=== PATIENT | male | born 1995 | race Caucasian/White ===

== ENCOUNTER 2016-07-18 23:30 | Emergency (ER) | payer OTHER ==
[~2016-07-18] VITALS: Ht 177.8 cm; Wt 77.3 kg
[~2016-07-18 23:30] MED LIST: BENZ200C44 PO; DICY20TA33 PO; ONDA4TAB9 PO
[2016-07-18 23:40] VITALS: BP 140/89; PULSE 81; RESP 14; O2SAT 97
--- NOTE | 2016-07-18 23:54 | ED.REPORT ---
HPI-URI / Cough / Cold Date of Service Jul 18, 2016 ED Provider: Dr. Gera Myers D.O. A 20 year old male with a medical history including bipolar disorder, ADD, and GERD presents to the ED with a cough onset one week ago, worsening tonight. The patient also reports nasal congestion and sore throat. He denies fever or other symptoms. The patient has not been on antibiotics recently and has no ill contacts. Nursing Notes Stated Complaint: CONGESTED/ COUGH Chief Complaint: Respiratory Complaints Nursing Notes Reviewed: Yes Allergies: Coded Allergies: Penicillins (Verified Allergy, Severe, Shortness of Breath, 04/16/16) Sulfa (Sulfonamide Antibiotics) (Verified Allergy, Severe, Nausea,Vomiting , 04/16/16) + migraines aspirin (Verified Allergy, Unknown, lightheaded, 04/16/16) Scheduled PRN Benzonatate (Benzonatate) 200 Mg Capsule 200 MG PO TID PRN PRN For Cough Dicyclomine (Bentyl) 20 Mg Tablet 20 MG PO TID PRN PRN For GI Cramps Ondansetron ODT (Zofran ODT) 4 Mg Tablet 4 MG PO Q4H PRN PRN For Nausea General Time Seen by MD: 23:54 Chief Complaint Cough, non-productive Hx Obtained From: Patient Arrived By: Walk-in Onset Occurred: 1 week ago Symptom Duration: Since onset Location: : Pharynx Quality: Painful Severity: Current: Mild Severity: Maximum: Mild Associated with: Denies: Fever Pertinent Negative: Relieved by nothing Context: Immunization Status General: Unknown Recent Healthcare: No recent doctor visit Past Medical History Past Medical History Bipolar disorder ADD GERD Past Surgical History None Family History Grandfather had heart disease Non-Contributory Reports: Diabetes mellitus Smoking History Former Smoker 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 Physical Exam Physical Exam Notes: Initial Vital Signs Vital Signs (First) Date Time Temp Pulse Resp B/P Pulse Ox O2 Delivery O2 Flow Rate FiO2 07/18/16 23:40 36.6 81 14 140/89 97 Room Air Initial VS: Reviewed Head / Eyes: Atraumatic, Normocephalic Neck: Non-tender, Full range of motion Cardiovascular: Regular rate & rhythm, Heart sounds normal, Intact distal pulses Skin: Warm, Dry, No cyanosis Neurologic: Alert, Oriented, Nonfocal Psychiatric: Mood/affect normal, Behavior normal, Normal thought content General/Constitutional: Awake, Alert, No acute distress ENT: Airway patent, Mucous membranes moist Respiratory / Chest: No respiratory distress Wheezing / Retractions: Positive: Wheezing moderate (Left) Rales / Rhonchi: Positive: Rhonchi diffuse (Bilateral) Interpretation & Diagnostics Rapid Strep Negative Influenza Negative Re-Eval/Medical Decision Med Decision/Clinical Course No pulmonary emboli risk factors Pulmonary emboli criteria met Lungs better after albuterol Will place on course of Zithromax, prednisone, and albuterol Recommend he stay home 48 hours Source of Hx: Old records Re-Evaluation/Progress : Time of Eval: 00:30 Patient Status: Condition improved Re-Evaluation/Progress Note: Discussed with patient lab results, diagnosis, and plan for discharge. Follow-up and return to the ER instructions given. Patient agrees with plan for care and all questions were addressed. Counseled Regarding: Diagnosis, Lab results, Need for follow-up, When/why to return to ED Discharge & Departure Impression: Primary Impression: Acute bronchitis Bronchitis organism: unspecified organism Qualified Code: J20.9 - Acute bronchitis, unspecified Additional Impression: Bronchospasm Disposition: Home Discharge Condition All VS Reviewed: Yes Condition: Improved Patient Instructions: Acute Bronchitis (GEN) Additional Instructions: Never ever smoked cigarettes again. Zithromax daily for 4 days. Albuterol 2 puffs every 3 hours as needed for cough. Prednisone daily for 3 days. Set up a follow-up with your primary care physician for the next 5-7 days. If you develop any chest pain, shortness of breath or cough up any blood then come right back to the emergency department. Your flu screen was negative. Referrals: Lilly Waldrop ([facility]) VRancho (PCP) Scribe Attestation Portions of this note were transcribed by Kaitlin Stephen. I, Dr. Myers, personally performed the history, physical exam, and medical decision-making; I reviewed and confirmed the accuracy of the information in the transcribed note. Signed by: Kelin Miranda, 07/19/2016, 01:07 copies to: Lilly Waldrop Todd P DO ([place]) Jul 18, 2016 23:54 KAITLIN STEPHEN Jul 19, 2016 00:06
[2016-07-19] MEDS ORDERED: Albuterol HFA 60 Puff 8 Gm Inhaler INHALATION PRN (00:05)
[2016-07-19] MEDS ORDERED: predniSONE 20 mg Tablet PO ONE (00:05)
== END 2016-07-19 00:44 | disposition home or self-care (01) ==
LOC: SED 23:30
DX: J20.9 Acute bronchitis, unspecified (principal); R09.81 Nasal congestion; J02.9 Acute pharyngitis, unspecified; K21.9 Gastro-esophageal reflux disease without esophagitis; F31.9 Bipolar disorder, unspecified; F90.9 Attention-deficit hyperactivity disorder, unspecified type; Z87.891 Personal history of nicotine dependence; Z88.0 Allergy status to penicillin; Z88.2 Allergy status to sulfonamides

== ENCOUNTER 2016-07-27 19:48 | Emergency (ER) | payer OTHER ==
[~2016-07-27] VITALS: Ht 177.8 cm; Wt 77.3 kg
[2016-07-27 20:01] VITALS: BP 138/93; PULSE 109; RESP 17; O2SAT 96
[2016-07-27 20:43] LABS: BASOPHILS % (AUTO) 0.5 % (0-3); EOSINOPHILS % (AUTO) 1.7 % (0-5); MONOCYTES % (AUTO) 8.2 % (4-12); Mean Corpuscular Volume 81.3 fL (81-100); NEUTROPHILS % (AUTO) 57.4 % (40-74); Platelet Count 210 bil/L (150-400)
== END 2016-07-27 20:48 | disposition left against medical advice (07) ==
LOC: SED 19:48
DX: R10.9 Unspecified abdominal pain (principal); Z53.21 Procedure and treatment not carried out due to patient leaving prior to being seen by health care provider

== ENCOUNTER 2016-09-18 00:38 | Emergency (ER) | payer OTHER ==
[~2016-09-18] VITALS: Ht 177.8 cm; Wt 81.0 kg
[2016-09-18 00:43] VITALS: BP 139/89; PULSE 98; RESP 18; O2SAT 98
--- NOTE | 2016-09-18 01:12 | ED.REPORT ---
HPI-URI / Cough / Cold Date of Service September 18, 2016 ED Provider: Dr. Gera Myers D.O. A 20 year old male with a history of GERD, ADD, and bipolar disorder presents to the ED with a cough onset six days ago. Associated symptoms include subjective fever, posttussive vomiting, and generalized myalgias. He denies other symptoms. The patient has had similar symptoms in the past. Nursing Notes Stated Complaint: COUGH,NAUSEA,CHILLS,FEVER Chief Complaint: Respiratory Complaints Nursing Notes Reviewed: Yes Allergies: Coded Allergies: Penicillins (Verified Allergy, Severe, Shortness of Breath, 09/18/16) Sulfa (Sulfonamide Antibiotics) (Verified Allergy, Severe, Nausea,Vomiting , 09/18/16) + migraines aspirin (Verified Allergy, Unknown, lightheaded, 09/18/16) Scheduled PRN Benzonatate (Benzonatate) 200 Mg Capsule 200 MG PO TID PRN PRN For Cough Dicyclomine (Bentyl) 20 Mg Tablet 20 MG PO TID PRN PRN For GI Cramps Ondansetron ODT (Zofran ODT) 4 Mg Tablet 4 MG PO Q4H PRN PRN For Nausea General Time Seen by MD: 01:12 Chief Complaint Cough, non-productive Hx Obtained From: Patient Arrived By: Walk-in Onset Occurred: 6 days ago Symptom Duration: Since onset Location: : Diffuse myalgia Quality: Painful Severity: Current: Moderate Severity: Maximum: Moderate Pertinent Negative: Relieved by nothing Context: Immunization Status Immunizations Up to Date: Tetanus within 5-10 years Recent Healthcare: No recent doctor visit Similar Sx Previous: Yes Past Medical History Past Medical History Bipolar disorder ADD GERD Past Surgical History None Family History Grandfather had heart disease Non-Contributory Reports: Diabetes mellitus Smoking History Former Smoker 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 Musculoskeletal: Reports: Myalgia (Generalized myalgias) Physical Exam Initial Vital Signs Vital Signs (First) Date Time Temp Pulse Resp B/P Pulse Ox O2 Delivery O2 Flow Rate FiO2 09/18/16 00:43 36.8 98 18 139/89 98 Room Air Initial VS: Reviewed Head / Eyes: Atraumatic, Normocephalic Neck: Supple, Full range of motion Cardiovascular: Regular rate & rhythm, Heart sounds normal Skin: Warm, Dry, No cyanosis Neurologic: Alert, Oriented, Nonfocal Psychiatric: Mood/affect normal, Behavior normal, Normal thought content General/Constitutional: Awake, Alert, No acute distress Respiratory / Chest: No respiratory distress Wheezing / Retractions: Positive: Wheezing mild (Left base) Rales / Rhonchi: Positive: Rhonchi coarse L Interpretation & Diagnostics X-Ray Chest Interpretation Chest Xray Interpretation: Retrocardiac infiltrate View: AP & lat Interpretation / Wet Read by: Wet read ED physician Re-Eval/Medical Decision Med Decision/Clinical Course Healthy 20-year-old male presents with chills, cough and productive green sputum. He has been sick for 5-6 days. He has had similar problems in the past. He does not have pulmonary emboli risk factors. Pulmonary emboli rule out criteria were met. He is considered low risks and therefore d-dimer was not indicated. Chest x-ray shows a retrocardiac infiltrate consistent with early pneumonia. I will place him on a macrolide. Recommend close outpatient follow-up. Return if any problems or any new or worsening symptoms. Source of Hx: Old records Re-Evaluation/Progress : Time of Eval: 02:00 Patient Status: Condition improved Re-Evaluation/Progress Note: Discussed with patient x-ray and lab results, diagnosis, and plan for discharge. Follow-up and return to the ER instructions given. Patient agrees with plan for care and all questions were addressed. Counseled Regarding: Diagnosis, Lab results, Need for follow-up, When/why to return to ED Discharge & Departure Impression: Primary Impression: Acute bronchitis Bronchitis organism: unspecified organism Qualified Code: J20.9 - Acute bronchitis, unspecified Disposition: Home Discharge Condition All VS Reviewed: Yes Condition: Improved Patient Instructions: Acute Bronchitis (GEN) Additional Instructions: Finished the Z-Skinny. Prednisone daily for 3 days. Albuterol 2 puffs every 4 hours. Set up a follow-up with your primary care physician for later this week. Return if any problems or any new or worsening symptoms. Return if you develop any chest pain or shortness of breath or cough up any blood. Off work until Saturday. Referrals: Lilly Waldrop ([facility]) Delma (PCP) Kelin Attestation Portions of this note were transcribed by Kaitlin Stephen. I, Dr. Myers, personally performed the history, physical exam, and medical decision-making; I reviewed and confirmed the accuracy of the information in the transcribed note. Signed by: Kelin Miranda, 09/18/2016, 02:30 copies to: Lilly Waldrop ([place]) Gera Brooks DO September 18, 2016 01:12 KAITLIN STEPHEN September 18, 2016 01:22
[2016-09-18] MEDS ORDERED: predniSONE 20 mg Tablet PO ONE (01:20)
[2016-09-18] MEDS ORDERED: _Proair 200 Puff/8.5 GM Inhaler INHALATION PRN (01:25)
[2016-09-18 02:20] VITALS: BP 135/85; PULSE 88; RESP 20; O2SAT 98
--- NOTE | 2016-09-19 09:40 | DRSVH ---
PROCEDURE: X-RAY CHEST, TWO VIEWS ([id number]) INDICATIONS: cough TECHNIQUE: 2 views of the chest were acquired. COMPARISON: [facility], CR, XR CHEST 2VW, 04/16/2016, 0:16. FINDINGS: Surgical changes and devices: None. Lungs and pleura: No pleural effusions or pneumothorax. Lungs are clear. Mediastinum: Mediastinal contours are normal. Heart size is normal. Bones and chest wall: No suspicious bony abnormalities. Soft tissues appear unremarkable. IMPRESSION: Normal chest. Dictated by: Dawood Prado M.D. on 09/18/2016 at 8:05 Approved by: Dawood Prado M.D. on 09/18/2016 at 8:05
== END 2016-09-18 02:21 | disposition home or self-care (01) ==
LOC: SED 01:17
DX: J20.9 Acute bronchitis, unspecified (principal); F31.9 Bipolar disorder, unspecified; K21.9 Gastro-esophageal reflux disease without esophagitis; Z87.891 Personal history of nicotine dependence; Z88.0 Allergy status to penicillin; Z88.2 Allergy status to sulfonamides; Z88.8 Allergy status to other drugs, medicaments and biological substances